=== PATIENT | female | born 1990 ===

== ENCOUNTER 2022-05-14 00:24 | Emergency (ER) | payer BC ==
[~2022-05-14] VITALS: Ht 154.9 cm; Wt 63.5 kg
[2022-05-14] MEDS ORDERED: ESCI10 PO (01:01)
== END 2022-05-14 06:30 | disposition home or self-care (01) ==
LOC: ER 00:24
DX: F32.9 Major depressive disorder, single episode, unspecified (principal)
CPT/HCPCS: 99285-25